=== PATIENT | male | born 1965 | race Two or more races ===

== ENCOUNTER 2021-11-22 17:21 | Emergency (ER) | payer BC, MEDICAID ==
[2021-11-22] MEDS ORDERED: Ketorolac 30 MG/ML SDV IVPUSH ONE (17:46)
[2021-11-22] MEDS ORDERED: Lactated Ringers 1,000 ML IV STA (17:46)
[2021-11-22 18:32] LABS: BLOOD UREA NITROGEN,BUN 9 mg/dL (7.0-18.0); CARBON DIOXIDE,CO2 29.4 mmol/L (21.0-32.0); CHLORIDE,CL 103 mmol/L (98-107); GLUCOSE RANDOM 98 mg/dL (74-106); POTASSIUM,K 4.4 mmol/L (3.5-5.1); SODIUM,NA 143 mmol/L (136-148)
[2021-11-22] MEDS ORDERED: Lidocaine 5% 700 MG Patch TRDERM ONE (18:52)
== END 2021-11-22 19:28 | disposition home or self-care (01) ==
LOC: MW.ED 17:21
DX: S39.012A Strain of muscle, fascia and tendon of lower back, initial encounter (principal); I10 Essential (primary) hypertension; J45.909 Unspecified asthma, uncomplicated; Z72.0 Tobacco use; Z79.899 Other long term (current) drug therapy
CPT/HCPCS: 36415; 74176; 80053; 81003; 85025; 96374; 99284; A9270; J1885; J7120